=== PATIENT | male | born 1965 | race Caucasian/White ===

== ENCOUNTER 2020-05-02 08:17 | Emergency (ER) | payer OTHER ==
[~2020-05-02] VITALS: Ht 180.3 cm; Wt 80.7 kg
[2020-05-02] MEDS: IV NS 0.9% 1,000 ML BAG IV ONE (09:05)
--- NOTE | 2020-05-02 09:15 | NUR ---
SEEN BY DR SCHMIDT WITH ORDERS,PIV STARTED,BLOOD DRAWN FOR LABS, IVF INFUSING ORDERED
[2020-05-02 09:39] LABS: BASOPHILS % (AUTO) 0.7 % (0.0-2.0); EOSINOPHILS % (AUTO) 2.5 % (0.0-6.0); HEMATOCRIT 46 % (39-51); HEMOGLOBIN 15.5 g/dL (13.5-17.5); LYMPHOCYTES # (AUTO) 1.3 /CMM (0.8-4.8); MEAN CORPUSCULAR HGB CONC 34 g/dl (31.0-36.0); MEAN CORPUSCULAR VOLUME 90 fL (80-96); MONOCYTES # (AUTO) 0.4 /CMM (0.1-1.30); MONOCYTES % (AUTO) 7.6 % (2.0-12.0); NEUTROPHILS # (AUTO) 3.4 /CMM (1.8-8.9); NEUTROPHILS % (AUTO) 64.2 % (43.0-81.0); PLATELET COUNT (AUTO) 173 /CMM (150-450); RED BLOOD CELL COUNT(AUTO) 5.06 MIL/uL (4.5-6.0); WHITE BLOOD COUNT (AUTO) 5.3 K/uL (4.3-11.0)
[2020-05-02 09:47] LABS: CALCIUM, SERUM 9.2 mg/dL (8.5-10.1); CARBON DIOXIDE 30 mmol/L (21-32); CHLORIDE 103 mmol/L (98-107); GLUCOSE 99 mg/dL (74-106); POTASSIUM 3.6 mmol/L (3.5-5.1); SODIUM SERUM 141 mmol/L (136-145); UREA NITROGEN, BLOOD 16 mg/dL (7-18)
[2020-05-02 10:06] LABS: ALANINE AMINOTRANSFERASE 34 U/L (12-78); ALBUMIN 4.1 g/dL (3.4-5.0); ALKALINE PHOSPHATASE 58 U/L (46-116); ASPARTATE AMINOTRANSFERASE 23 U/L (15-37); BILIRUBIN,DIRECT 0.1 mg/dL (0.0-0.2); BILIRUBIN,TOTAL 0.5 mg/dL (0.2-1.0); TOTAL PROTEIN, SERUM 7.5 g/dL (6.4-8.2)
[2020-05-02 11:01] VITALS: BP 126/62
== END 2020-05-02 11:02 | disposition home or self-care (01) ==
LOC: ER 08:21
DX: R55 Syncope and collapse (principal); R00.2 Palpitations; Z91.018 Allergy to other foods
CPT/HCPCS: 36415; 71045; 80048; 80076; 84484; 85025; 93005 ×2; 96360; 99285; J7030